=== PATIENT | male | born 1935 | race Hispanic/Latino ===

== ENCOUNTER 2018-09-14 09:04 | Observation (INO) | payer MEDICARE, MEDICAID ==
[~2018-09-14] VITALS: Ht 182.9 cm; Wt 69.4 kg
[2018-09-14 09:43] LABS: HEMATOCRIT 45.3 % (39.0-50.0); HEMOGLOBIN 14.9 g/dl (14.0-18.0); IMMATURE GRANULOCYTES 0.2 % (0.0-5.0); MEAN CORPUSCULAR HGB 26.3 pG CALC (26.0-32.0); MEAN CORPUSCULAR HGB CONC 32.9 g/L CALC (32.0-36.0); NEUT# 4.96 thou/uL (1.82-7.42); RED BLOOD COUNT 5.66 mill/uL (4.70-6.10); RED CELL DISTRI WIDTH 14.7 % (11.5-15.5)
[2018-09-14 09:56] LABS: ANION GAP 17 (6-22 (CALC)); BUN 10 mg/dL (8-23); BUN/CREATININE RATIO 10 (12-20 (CALC)); CARBON DIOXIDE 23 mmol/l (22-30); CHLORIDE 95 mmol/l (95-108); GFR > 60 ML/MIN (>=60 (CALC)); GFR FOR AFR.AMER. > 60 ML/MIN (>=60 (CALC)); POTASSIUM 5.1 mmol/l (3.5-5.1); SODIUM 130 mmol/l (137-146)
[2018-09-14 11:54] LABS: URINE BILIRUBIN - DIPSTICK NEGATIVE (NEGATIVE); URINE BLOOD DIPSTICK MODERATE (NEGATIVE); URINE COLOR YELLOW; URINE GLUCOSE - DIPSTICK NEGATIVE (NEGATIVE); URINE KETONE NEGATIVE (NEGATIVE); URINE LEUK ESTERASE NEGATIVE (NEGATIVE); URINE NITRITE - DIPSTICK NEGATIVE (Negative); URINE PROTEIN - DIPSTICK NEGATIVE (NEG-TRACE); URINE SPECIFIC GRAVITY <=1.005; URINE UROBILINOGEN - DIPSTICK 0.2 E.U./dL (0.2)
[2018-09-14 12:17] LABS: URINE WBC 0-2 WBC/hpf (0-5)
[2018-09-14 12:59] VITALS: BP 123/68
[2018-09-14] MEDS ORDERED: LIPITOR40 M1 PO (14:22)
[2018-09-14] MEDS ORDERED: PROAIR HFA IN (14:22)
[2018-09-14] MEDS ORDERED: BRIMONIDINE TAR0.2 % OU (14:23)
[2018-09-14] MEDS ORDERED: SB ALLERGY10 MG PO (14:24)
[2018-09-14] MEDS ORDERED: COZAAR50 MG PO (14:25)
[2018-09-14] MEDS ORDERED: LATANOPROST0.005 % OU (14:25)
[2018-09-14] MEDS ORDERED: METFORMIN500 M1 PO (14:26)
[2018-09-14] MEDS ORDERED: OMEPRAZOLE DR40 MG PO (14:26)
[2018-09-14] MEDS ORDERED: MULTIVITAMI9 PO (14:52)
[2018-09-14 15:20] VITALS: BP 139/64
[2018-09-14 19:00] VITALS: BP 150/63
[2018-09-15 00:05] VITALS: BP 141/71
[2018-09-15 04:05] VITALS: BP 138/70
[2018-09-15 06:10] LABS: ANION GAP 18 (6-22 (CALC)); BUN 14 mg/dL (8-23); BUN/CREATININE RATIO 13 (12-20 (CALC)); CARBON DIOXIDE 22 mmol/l (22-30); CHLORIDE 96 mmol/l (95-108); CREATININE 1.1 mg/dL (0.7-1.3); GFR > 60 ML/MIN (>=60 (CALC)); GFR FOR AFR.AMER. > 60 ML/MIN (>=60 (CALC)); POTASSIUM 5.1 mmol/l (3.5-5.1); SODIUM 131 mmol/l (137-146)
[2018-09-15 07:15] VITALS: BP 100/52
[2018-09-15 11:02] VITALS: BP 127/76
[2018-09-15 15:09] VITALS: BP 124/61
[2018-09-15 19:00] VITALS: BP 138/70
[2018-09-16] VITALS: BP 156/67
[2018-09-16 04:00] VITALS: BP 136/68
[2018-09-16 08:18] VITALS: BP 130/63
[2018-09-16 11:06] VITALS: BP 121/63
[2018-09-16] MEDS ORDERED: MEDDOSEPAK PO (11:47)
[2018-09-16] MEDS ORDERED: ZPAK PO (11:47)
[2018-09-16 13:44] LABS: ANION GAP 19 (6-22 (CALC)); BUN 17 mg/dL (8-23); BUN/CREATININE RATIO 18 (12-20 (CALC)); CARBON DIOXIDE 19 mmol/l (22-30); CHLORIDE 99 mmol/l (95-108); GFR > 60 ML/MIN (>=60 (CALC)); GFR FOR AFR.AMER. > 60 ML/MIN (>=60 (CALC)); POTASSIUM 4.5 mmol/l (3.5-5.1); SODIUM 133 mmol/l (137-146)
== END 2018-09-16 13:58 | disposition home or self-care (01) ==
LOC: ED 09:04 → ED-I 09:40 → ED 10:39 → MS2 10:40
PROVIDERS: Family Medicine; Nurse Practitioner Family; ADMIT Internal Medicine; ATTEND Internal Medicine
DX: J44.1 Chronic obstructive pulmonary disease with (acute) exacerbation (principal); E87.1 Hypo-osmolality and hyponatremia; I10 Essential (primary) hypertension; E11.51 Type 2 diabetes mellitus with diabetic peripheral angiopathy without gangrene; Z86.79 Personal history of other diseases of the circulatory system; Z87.891 Personal history of nicotine dependence; Z79.84 Long term (current) use of oral hypoglycemic drugs; Z77.098 Contact with and (suspected) exposure to other hazardous, chiefly nonmedicinal, chemicals

== ENCOUNTER 2018-10-09 13:12 | Emergency (ER) | payer MEDICARE, MEDICAID ==
[~2018-10-09] VITALS: Ht 182.9 cm; Wt 70.0 kg
[~2018-10-09 13:12] MED LIST: BRIMONIDINE TAR0.2 % OU; COZAAR50 MG PO; LATANOPROST0.005 % OU; LIPITOR40 M1 PO; MEDDOSEPAK PO; METFORMIN500 M1 PO; MULTIVITAMI9 PO; OMEPRAZOLE DR40 MG PO; PROAIR HFA IN; SB ALLERGY10 MG PO; ZPAK PO
[2018-10-09 13:57] LABS: HEMATOCRIT 41.4 % (39.0-50.0); HEMOGLOBIN 13.7 g/dl (14.0-18.0); IMMATURE GRANULOCYTES 0.5 % (0.0-5.0); MEAN CELL VOLUME 79.5 fL CALC (80.0-100.0); MEAN CORPUSCULAR HGB 26.3 pG CALC (26.0-32.0); MEAN CORPUSCULAR HGB CONC 33.1 g/L CALC (32.0-36.0); NEUT# 8.75 thou/uL (1.82-7.42); RED BLOOD COUNT 5.21 mill/uL (4.70-6.10)
[2018-10-09 14:09] LABS: ALBUMIN 4.1 g/dL (3.2-5.0); ALKALINE PHOSPHATASE 99 u/l (38-126); BILIRUBIN, TOTAL 0.8 mg/dL (0.0-1.4); BUN 11 mg/dL (8-23); BUN/CREATININE RATIO 12 (12-20 (CALC)); CARBON DIOXIDE 19 mmol/l (22-30); CHLORIDE 93 mmol/l (95-108); GFR > 60 ML/MIN (>=60 (CALC)); GFR FOR AFR.AMER. > 60 ML/MIN (>=60 (CALC)); SGOT/AST 40 u/l (19-48); TOTAL PROTEIN 6.8 g/dL (6.3-8.2)
[2018-10-09 14:41] LABS: ANION GAP 17 (6-22 (CALC)); SODIUM 124 mmol/l (137-146)
[2018-10-09] MEDS ORDERED: B COMPLETE PO (15:20)
[2018-10-09] MEDS ORDERED: FEOSOL200 MG PO (15:21)
[2018-10-09 16:53] VITALS: BP 119/70
== END 2018-10-09 17:11 | disposition short-term general hospital (02) ==
LOC: ED 13:12
PROVIDERS: Emergency Medicine
DX: I21.4 Non-ST elevation (NSTEMI) myocardial infarction (principal); E87.1 Hypo-osmolality and hyponatremia; J44.9 Chronic obstructive pulmonary disease, unspecified; I10 Essential (primary) hypertension; E11.9 Type 2 diabetes mellitus without complications; Z95.5 Presence of coronary angioplasty implant and graft
CPT/HCPCS: J1650; J3475